=== PATIENT | female | born 1945 | race Caucasian/White ===

== ENCOUNTER → 2016-07-02 | Emergency (ER) | payer MEDICARE, OTHER ==
[2016-07-02 18:28] LABS: HCT 30.9 % (37.0-47.0); MCH 34.1 pg (25.0-31.0); MCHC 32.4 g/dL (32.0-36.0); MCV 105.5 fL (78.0-100.0); PLT 67 K/uL (150-400); RBC 2.93 M/uL (4.20-5.40)
[2016-07-02 18:29] LABS: WBC 3.5 K/uL (4.0-10.5)
[2016-07-02 18:50] LABS: CREATININE 1.1 mg/dL (0.5-1.0); POTASSIUM 4.3 mmol/L (3.5-5.1)
[2016-07-02 19:30] LABS: ALBUMIN 2.6 g/dL (3.4-4.8)
[2016-07-02 19:46] LABS: BILIRUBIN - DIRECT 1.5 mg/dL (0.0-0.2); BILIRUBIN - TOTAL 2.7 mg/dL (0.1-1.0); GLOBULIN (CALCULATION) 4.2 g/dL (2.2-4.2); TOTAL PROTEIN 6.8 g/dL (6.4-8.3)
== END | disposition home or self-care (01) ==
LOC: FER 17:30
PROVIDERS: Emergency Medicine
DX: J44.1 Chronic obstructive pulmonary disease with (acute) exacerbation (principal); R60.0 Localized edema; I10 Essential (primary) hypertension; K74.60 Unspecified cirrhosis of liver; F17.210 Nicotine dependence, cigarettes, uncomplicated; Z88.5 Allergy status to narcotic agent; Z88.6 Allergy status to analgesic agent; Z87.442 Personal history of urinary calculi
CPT/HCPCS: 36415; 71020; 80048; 80076; 83880; 85025; 93005; 94640; 94664; J1940; J2930